=== PATIENT | female | born 1990 | race African-American/Black ===

== ENCOUNTER 2021-10-23 17:23 | Emergency (ER) | payer MEDICAID ==
[~2021-10-23] VITALS: Ht 167.6 cm; Wt 75.0 kg
[2021-10-23 21:09] LABS: BASOPHILS % 1.3 % (0.0-2.0); EOSINOPHILS % 1.7 % (0.0-5.0); HEMATOCRIT. 34.4 % (36.0-48.0); HEMOGLOBIN. 11.1 g/dL (12.0-16.0); MEAN CORPUSCULAR HEMOGLOBIN 25.2 pg (28.0-32.0); MEAN CORPUSCULAR VOLUME 78.2 fL (81.0-99.0); MEAN PLATELET VOLUME 6.1 fl (7.4-10.4); MONOCYTES % 7.8 % (2.0-8.0); NEUTROPHILS % 44.2 % (40.0-76.0); PLATELET 350 x1000/uL (130-400); RED CELL DISTRIBUTION WIDTH 15.4 % (11.6-14.6)
[2021-10-23 21:17] LABS: CHLORIDE 107 mEq/L (98-107)
[2021-10-23 21:28] LABS: B-HCG QUANTITATIVE 139 mIU/mL (<3)
[2021-10-23] MEDS ORDERED: ACETAMINOPHEN 325MG TABLET PO STA (22:28)
[2021-10-23 22:30] VITALS: BP 119/83
== END 2021-10-23 23:16 | disposition left against medical advice (07) ==
LOC: ER 17:23
DX: O26.891 Other specified pregnancy related conditions, first trimester (principal); O20.9 Hemorrhage in early pregnancy, unspecified; Z3A.00 Weeks of gestation of pregnancy not specified
CPT/HCPCS: 36415; 80053; 82962; 84702; 85025; 99283